=== PATIENT | female | born 1990 | race Caucasian/White ===

== ENCOUNTER → 2017-08-22 | Outpatient (CLI) | payer OTHER ==
[~2017-08-22] MED LIST: ALBU90OI INH; HYDR1TAB94 PO; IBU400 MG PO; IBUP800 PO; Verotin-Gr Cap1 EACH PO; ZYRTEC10 M1 PO; Zofran Odt4 MG SL
== END | disposition home or self-care (01) ==
LOC: LAB EV 15:14
DX: R35.8 Other polyuria (principal)
CPT/HCPCS: 87086

== ENCOUNTER → 2017-10-14 | Outpatient (CLI) | payer OTHER ==
[~2017-10-14] MED LIST changes: -IBU400 MG PO
[2017-10-14 12:04] LABS: Source, Urine Clean Catch
[2017-10-14 12:41] LABS: Bilirubin, Urine Neg (Neg); Blood, Urine 1+ (Neg); Glucose Qualitative, Urine Neg (Neg); Ketones, Urine Neg (Neg); Leukocyte Esterase, Urine 1+ (Neg); Nitrite, Urine Neg (Neg); Protein, Urine Neg (Neg); Specific Gravity, Urine 1.015 (1.003-1.022); Urobilinogen, Urine NORM (Normal)
[2017-10-14 13:17] LABS: Appearance, Urine Hazy (Clear); Color, Urine Yellow (P-Yellow)
[2017-10-14 13:18] LABS: Bacteria Mod /hpf; Squamous Epithelial Cells Mod /hpf (Few)
[2017-10-15 08:44] LABS: Candida species (DNA Probe) Negative (NEGATIVE); G. vaginalis (DNA Probe) Negative (NEGATIVE); T. vaginalis (DNA Probe) Negative (NEGATIVE)
[2017-10-15 12:24] LABS: Source Vaginal/Cervical
[2017-10-30 14:05] LABS: HPV Genotype 16 Not Detected (NOTDET); HPV Genotype 18 Not Detected (NOTDET); HPV High Risk Other Detected (NOTDET)
== END | disposition home or self-care (01) ==
LOC: LAB 12:02 → LAB SHORT 12:02
PROVIDERS: Advanced Practice Midwife
DX: O99.89 Other specified diseases and conditions complicating pregnancy, childbirth and the puerperium (principal); N89.8 Other specified noninflammatory disorders of vagina; R30.0 Dysuria
CPT/HCPCS: 81001; 87086; 87480; 87510; 87624; 87660; G0123

== ENCOUNTER → 2018-03-04 | Outpatient (CLI) | payer OTHER ==
[2018-03-05 14:36] LABS: Candida species (DNA Probe) Positive (NEGATIVE); G. vaginalis (DNA Probe) Negative (NEGATIVE); T. vaginalis (DNA Probe) Negative (NEGATIVE)
== END ==
LOC: LAB 10:01 → LAB SHORT 10:01
PROVIDERS: Advanced Practice Midwife
DX: N76.0 Acute vaginitis (principal)
CPT/HCPCS: 87480; 87510; 87660

== ENCOUNTER → 2018-04-01 | Outpatient (CLI) | payer OTHER | LOC: LAB SHORT 10:40 → LAB 10:40 | DX: Z34.80 Encounter for supervision of other normal pregnancy, unspecified trimester (principal) | CPT/HCPCS: 87081; 87653 ==

== ENCOUNTER 2018-04-29 12:00 | Inpatient (IN) | payer SELFPAY ==
[~2018-04-29] VITALS: Ht 157.5 cm; Wt 81.4 kg
[2018-04-29 12:41] LABS: BASOPHILS ABSOLUTE AUTO 0.03 K/mm3 (0.00-0.23); BASOPHILS PERCENT AUTO 0 % (0-2); EOSINOPHILS ABSOLUTE AUTO 0.08 K/mm3 (0.00-0.68); EOSINOPHILS PERCENT AUTO 1 % (0-6); Hematocrit 37.5 % (33.0-51.0); Hemoglobin 12.9 g/dL (11.5-16.0); IMMATURE GRAN ABSOLUTE AUTO 0.07 K/mm3 (0.00-0.10); IMMATURE GRAN PERCENT AUTO 1 % (0-1); LYMPHOCYTES ABSOLUTE AUTO 1.87 K/mm3 (0.84-5.20); LYMPHOCYTES PERCENT AUTO 17 % (21-46); MONOCYTES ABSOLUTE AUTO 0.38 K/mm3 (0.16-1.47); MONOCYTES PERCENT AUTO 3 % (4-13); Mean Corpuscular HGB 29.6 pg (26.0-34.0); Mean Corpuscular HGB Conc 34.4 g/dL (31.5-36.5); Mean Corpuscular Volume 86 fL (80-100); NEUTROPHILS ABSOLUTE AUTO 8.61 K/mm3 (1.96-9.15); NEUTROPHILS PERCENT AUTO 78 % (41-73); Platelet Count 149 K/mm3 (150-400); RDW Coefficient Variation 12.3 % (11.7-14.2); RDW Standard Deviation 38.5 fL (35.1-46.3); Red Blood Cell Count 4.36 M/mm3 (3.80-5.20); White Blood Cell Count 11.04 K/mm3 (4.00-11.30)
[2018-04-29 12:49] LABS: Mean Platelet Volume 13.8 fL (9.1-12.4)
[2018-04-29 13:08] LABS: Alanine Aminotransfer (ALT/SGP 16 U/L (12-78); Albumin, Blood 2.8 g/dL (3.4-5.0); Albumin/Globulin Ratio 0.6 (0.8-1.8); Alk Phos 126 U/L (50-136); Anion Gap 15 mmol/L (6-16); Aspartate Aminotrans (AST/SGOT 19 U/L (12-37); Bilirubin, Total 0.3 mg/dL (0.1-1.0); Blood Urea Nitrogen 4 mg/dL (8-24); Bun/Creatinine Ratio 8.5 (12.0-20.0); CO2, Blood 19 mmol/L (21-32); Chloride, Blood 104 mmol/L (98-108); Creatinine, Blood 0.47 mg/dL (0.40-1.00); Globulin, Blood 4.7 g/dL (2.2-4.0); Glomerular Filtration Rate >60 (60-); Glucose, Blood 110 mg/dL (70-99); Potassium, Blood 3.7 mmol/L (3.5-5.5); Sodium, Blood 138 mmol/L (136-145); Total Protein, Blood 7.5 g/dL (6.4-8.2)
[2018-04-30] MEDS ORDERED: IBU400 MG PO (18:50)
[2018-05-01 05:15] LABS: Hematocrit 32.2 % (33.0-51.0); Mean Corpuscular HGB 29.6 pg (26.0-34.0); Mean Corpuscular HGB Conc 34.2 g/dL (31.5-36.5); Mean Corpuscular Volume 87 fL (80-100); Platelet Count 123 K/mm3 (150-400); RDW Coefficient Variation 12.5 % (11.7-14.2); RDW Standard Deviation 39.7 fL (35.1-46.3); Red Blood Cell Count 3.71 M/mm3 (3.80-5.20); White Blood Cell Count 16.88 K/mm3 (4.00-11.30)
[2018-05-01 05:17] LABS: Mean Platelet Volume 13.2 fL (9.1-12.4)
== END 2018-05-02 15:30 | disposition home or self-care (01) | DRG 774 ==
LOC: OBS 12:00 → BC 12:17
PROVIDERS: Advanced Practice Midwife
PROC: 10E0XZZ Delivery of Products of Conception, External Approach (ICD-10-PCS; principal; 2018-04-30)
PROC: 3E033VJ Introduction of Other Hormone into Peripheral Vein, Percutaneous Approach (ICD-10-PCS; 2018-04-30)
PROC: 10907ZC Drainage of Amniotic Fluid, Therapeutic from Products of Conception, Via Natural or Artificial Opening (ICD-10-PCS; 2018-04-30)
PROC: 3E0R3BZ Introduction of Anesthetic Agent into Spinal Canal, Percutaneous Approach (ICD-10-PCS; 2018-04-30)
PROC: 0HQ9XZZ Repair Perineum Skin, External Approach (ICD-10-PCS; 2018-04-30)
DX: O13.4 Gestational [pregnancy-induced] hypertension without significant proteinuria, complicating childbirth (principal); O75.3 Other infection during labor; O48.0 Post-term pregnancy; Z3A.40 40 weeks gestation of pregnancy; Z37.0 Single live birth; O76 Abnormality in fetal heart rate and rhythm complicating labor and delivery; Z88.8 Allergy status to other drugs, medicaments and biological substances; O70.0 First degree perineal laceration during delivery
CPT/HCPCS: 36415; 51702; 80053; 85025; 85027; J0290; J0690; J1580; J2590; J3010; J7120

== ENCOUNTER 2019-03-14 14:38 | Emergency (ER) | payer OTHER ==
[~2019-03-14] VITALS: Ht 165.1 cm; Wt 72.6 kg
[~2019-03-14 14:38] MED LIST changes: +BUSP10 PO; +IBU400 MG PO; +SERT50 PO
[2019-03-14] MEDS ORDERED: Veetids 500500 MG PO (14:51)
== END 2019-03-14 15:15 | disposition home or self-care (01) ==
LOC: ER 14:38
DX: J03.90 Acute tonsillitis, unspecified (principal); J45.909 Unspecified asthma, uncomplicated; Z88.1 Allergy status to other antibiotic agents; Z88.6 Allergy status to analgesic agent; Z79.899 Other long term (current) drug therapy; Z87.891 Personal history of nicotine dependence
CPT/HCPCS: 99282; J1100

== ENCOUNTER → 2020-05-18 | Outpatient (CLI) | payer OTHER ==
[~2020-05-18] MED LIST changes: +FERSU300; +PRENATAL TABLE1 EAC2; +Veetids 500500 MG PO
== END | disposition home or self-care (01) ==
LOC: LAB SHORT 11:18 → LAB 11:18
DX: Z34.93 Encounter for supervision of normal pregnancy, unspecified, third trimester (principal)
CPT/HCPCS: 87081; 87653

== ENCOUNTER 2020-06-08 04:03 | Inpatient (IN) | payer OTHER ==
[~2020-06-08] VITALS: Ht 157.5 cm; Wt 83.6 kg
[~2020-06-08 04:03] MED LIST changes: -FERSU300; -PRENATAL TABLE1 EAC2
[2020-06-08] MEDS ORDERED: PRENATAL TABLE1 EAC2 ×2 (04:40)
[2020-06-08] MEDS ORDERED: FERSU300 ×2 (04:41)
[2020-06-08 04:44] LABS: BASOPHILS ABSOLUTE AUTO 0.02 K/mm3 (0.00-0.23); BASOPHILS PERCENT AUTO 0 % (0-2); EOSINOPHILS ABSOLUTE AUTO 0.11 K/mm3 (0.00-0.68); EOSINOPHILS PERCENT AUTO 1 % (0-6); Hematocrit 37.6 % (33.0-51.0); Hemoglobin 12.3 g/dL (11.5-16.0); IMMATURE GRAN ABSOLUTE AUTO 0.05 K/mm3 (0.00-0.10); IMMATURE GRAN PERCENT AUTO 1 % (0-1); LYMPHOCYTES ABSOLUTE AUTO 2.12 K/mm3 (0.84-5.20); LYMPHOCYTES PERCENT AUTO 22 % (21-46); MONOCYTES ABSOLUTE AUTO 0.45 K/mm3 (0.16-1.47); MONOCYTES PERCENT AUTO 5 % (4-13); Mean Corpuscular HGB 29.2 pg (26.0-34.0); Mean Corpuscular HGB Conc 32.7 g/dL (31.5-36.5); Mean Corpuscular Volume 89 fL (80-100); Mean Platelet Volume 12.9 fL (9.1-12.4); NEUTROPHILS ABSOLUTE AUTO 7.02 K/mm3 (1.96-9.15); NEUTROPHILS PERCENT AUTO 72 % (41-73); Platelet Count 132 K/mm3 (150-400); RDW Coefficient Variation 13.1 % (11.7-14.2); RDW Standard Deviation 42.5 fL (35.1-46.3); Red Blood Cell Count 4.21 M/mm3 (3.80-5.20); White Blood Cell Count 9.77 K/mm3 (4.00-11.30)
[2020-06-08 17:41] LABS: Source, Urine Catheter
[2020-06-08 17:50] LABS: Appearance, Urine Clear (Clear); Bilirubin, Urine Neg (Neg); Blood, Urine 5+ (Neg); Color, Urine Yellow (P-Yellow); Glucose Qualitative, Urine Neg (Neg); Ketones, Urine 4+ (Neg); Leukocyte Esterase, Urine Neg (Neg); Nitrite, Urine Neg (Neg); Protein, Urine 2+ (Neg); Urobilinogen, Urine NORM (Normal)
[2020-06-08 18:30] LABS: Bacteria Few /hpf; Red Blood Cells, Urine TNTC /hpf (0-2); Squamous Epithelial Cells Few /hpf (Few); White Blood Cells, Urine Not Seen /hpf (0-5)
[2020-06-08 18:31] LABS: Mucus Light (0-Heavy)
--- NOTE | 2020-06-09 09:00 | NUR ---
PT RESTING IN BED, NB IN ARMS. PLANNIGN TO DC HOME LATER TODAY.
--- NOTE | 2020-06-09 16:28 | NUR ---
ROUNDING MOM REPORTS IS GOING WELL AND HAS NO QUESTIONS. MOM IS AN EXPERIENCED MOM.
--- NOTE | 2020-06-09 17:30 | NUR ---
BANDS MATCHED, DC INSTRUCTIONS GONE OVER. DC HOME.
== END 2020-06-09 17:30 | disposition home or self-care (01) | DRG 807 ==
LOC: OBS 04:03 → BC 04:09
PROVIDERS: ADMIT Obstetrics & Gynecology
PROC: 10E0XZZ Delivery of Products of Conception, External Approach (ICD-10-PCS; principal; 2020-06-08)
PROC: 0KQM0ZZ Repair Perineum Muscle, Open Approach (ICD-10-PCS; 2020-06-08)
PROC: 10907ZC Drainage of Amniotic Fluid, Therapeutic from Products of Conception, Via Natural or Artificial Opening (ICD-10-PCS; 2020-06-08)
PROC: 00HU33Z Insertion of Infusion Device into Spinal Canal, Percutaneous Approach (ICD-10-PCS; 2020-06-08)
PROC: 3E0R3BZ Introduction of Anesthetic Agent into Spinal Canal, Percutaneous Approach (ICD-10-PCS; 2020-06-08)
DX: O99.824 Streptococcus B carrier state complicating childbirth (principal); Z37.0 Single live birth; O69.89X0 Labor and delivery complicated by other cord complications, not applicable or unspecified; O70.1 Second degree perineal laceration during delivery; Z3A.39 39 weeks gestation of pregnancy; Z87.891 Personal history of nicotine dependence; Z20.828 Contact with and (suspected) exposure to other viral communicable diseases
CPT/HCPCS: 36415; 51702; 81001; 85025; 86850; 86900; 86901; J0290; J1885; J2001; J2210; J2405; J2590; J3010; J7120; U0003

== ENCOUNTER → 2021-03-21 | Outpatient (CLI) | payer OTHER ==
[~2021-03-21] MED LIST changes: +FERSU300; +PRENATAL TABLE1 EAC2
[2021-03-23 16:58] LABS: CORONAVIRUS (COVID19) CSH-NRL Negative (Negative)
== END ==
LOC: LAB 11:35 → LAB SHORT 11:35
PROVIDERS: Family Medicine
DX: Z20.822 Contact with and (suspected) exposure to COVID-19 (principal); Z88.1 Allergy status to other antibiotic agents; Z88.6 Allergy status to analgesic agent
CPT/HCPCS: U0003

== ENCOUNTER → 2021-06-26 | Outpatient (CLI) | payer OTHER | END | disposition home or self-care (01) | LOC: LAB 07:45 → LAB SHORT 07:45 | DX: D23.72 Other benign neoplasm of skin of left lower limb, including hip (principal) | CPT/HCPCS: 88305 ==

== ENCOUNTER → 2022-09-06 | Outpatient (CLI) | payer OTHER ==
[2022-09-06 18:06] LABS: Protein, Urine Quantitative 7.2 mg/dL (0.0-11.9)
== END | disposition home or self-care (01) ==
LOC: LAB SHORT 09:30
PROVIDERS: Obstetrics & Gynecology
DX: I10 Essential (primary) hypertension (principal)
CPT/HCPCS: 81050; 84156

== ENCOUNTER → 2022-09-25 | Outpatient (CLI) | payer OTHER ==
[2022-09-25 14:11] LABS: Candida species (DNA Probe) Positive (NEGATIVE); G. vaginalis (DNA Probe) Negative (NEGATIVE); T. vaginalis (DNA Probe) Negative (NEGATIVE)
== END | disposition home or self-care (01) ==
LOC: LAB SHORT 11:04 → LAB 11:04
PROVIDERS: Obstetrics & Gynecology
DX: N76.0 Acute vaginitis (principal)
CPT/HCPCS: 87480; 87510; 87660

== ENCOUNTER 2022-10-05 18:59 | Emergency (ER) | payer OTHER ==
[~2022-10-05] VITALS: Ht 157.5 cm; Wt 86.2 kg
[2022-10-05 19:41] LABS: BASOPHILS ABSOLUTE AUTO 0.02 K/mm3 (0.00-0.23); BASOPHILS PERCENT AUTO 0 % (0-2); EOSINOPHILS PERCENT AUTO 1 % (0-6); Hematocrit 36.2 % (33.0-51.0); Hemoglobin 12.1 g/dL (11.5-16.0); IMMATURE GRAN ABSOLUTE AUTO 0.07 K/mm3 (0.00-0.10); IMMATURE GRAN PERCENT AUTO 1 % (0-1); LYMPHOCYTES PERCENT AUTO 17 % (21-46); MONOCYTES ABSOLUTE AUTO 0.46 K/mm3 (0.16-1.47); MONOCYTES PERCENT AUTO 5 % (4-13); Mean Corpuscular HGB 28.5 pg (26.0-34.0); Mean Corpuscular HGB Conc 33.4 g/dL (31.5-36.5); Mean Corpuscular Volume 85 fL (80-100); Mean Platelet Volume 11.9 fL (9.1-12.4); NEUTROPHILS ABSOLUTE AUTO 7.29 K/mm3 (1.96-9.15); NEUTROPHILS PERCENT AUTO 77 % (41-73); Platelet Count 195 K/mm3 (150-400); RDW Coefficient Variation 13.2 % (11.7-14.2); RDW Standard Deviation 40.9 fL (35.1-46.3); Red Blood Cell Count 4.24 M/mm3 (3.80-5.20); White Blood Cell Count 9.54 K/mm3 (4.00-11.30)
[2022-10-05 20:02] LABS: Albumin, Blood 3.1 g/dL (3.4-5.0); Albumin/Globulin Ratio 0.7 (0.8-1.8); Bilirubin, Total 0.2 mg/dL (0.1-1.0); Bun/Creatinine Ratio 9.1 (12.0-20.0); Calcium, Blood 9.6 mg/dL (8.5-10.1); Creatinine, Blood 0.44 mg/dL (0.40-1.00); Globulin, Blood 4.7 g/dL (2.2-4.0); Potassium, Blood 3.7 mmol/L (3.5-5.5); Total Protein, Blood 7.8 g/dL (6.4-8.2)
[2022-10-05 21:18] LABS: Source, Urine Clean Catch
[2022-10-05 21:25] LABS: Appearance, Urine Clear (Clear); Bilirubin, Urine Neg (Neg); Blood, Urine Neg (Neg); Color, Urine Yellow (P-Yellow); Glucose Qualitative, Urine Neg (Neg); Ketones, Urine Neg (Neg); Leukocyte Esterase, Urine Neg (Neg); Nitrite, Urine Neg (Neg); Protein, Urine Neg (Neg); Specific Gravity, Urine 1.015 (1.003-1.022); Urobilinogen, Urine NORM (Normal)
[2022-10-05 21:26] LABS: Free Thyroxine 0.83 ng/dL (0.70-1.60)
[2022-10-05 21:28] LABS: Thyroid Stimulating Hormone 1.42 uIU/mL (0.360-4.800)
[2022-10-05 21:37] LABS: U Amphetamine Screen Not Detected; U Barbituate Screen Not Detected; U Benzodiazapine Screen Not Detected; U Buprenorphine Screen Not Detected; U Cannabinoids Screen Not Detected; U Cocaine Screen Not Detected; U Methadone Screen Not Detected; U Methamphetamine Screen Not Detected; U Opiates Screen Not Detected; U Oxycodone Screen Not Detected; U Phencyclidine Screen Not Detected; U Propoxyphene Screen Not Detected
[2022-10-05] MEDS ORDERED: METO50 PO (23:24)
== END 2022-10-05 23:37 | disposition home or self-care (01) ==
LOC: ER 18:59
PROVIDERS: Emergency Medicine; Student in an Organized Health Care Education/Training Program
DX: O99.891 Other specified diseases and conditions complicating pregnancy (principal); O99.412 Diseases of the circulatory system complicating pregnancy, second trimester; O99.512 Diseases of the respiratory system complicating pregnancy, second trimester; O16.2 Unspecified maternal hypertension, second trimester; R07.89 Other chest pain; R06.02 Shortness of breath; J45.909 Unspecified asthma, uncomplicated; Z3A.21 21 weeks gestation of pregnancy; Z79.899 Other long term (current) drug therapy; Z88.8 Allergy status to other drugs, medicaments and biological substances; Z88.1 Allergy status to other antibiotic agents; Z87.891 Personal history of nicotine dependence
CPT/HCPCS: 36415; 71260; 80053; 81003; 84439; 84443; 84484; 85025; 93005; 93010; Q9967

== ENCOUNTER → 2023-01-02 | Outpatient (CLI) | payer OTHER ==
[~2023-01-02] MED LIST changes: +METO50 PO
[2023-01-02 14:44] LABS: Candida species (DNA Probe) Positive (NEGATIVE); G. vaginalis (DNA Probe) Negative (NEGATIVE); T. vaginalis (DNA Probe) Negative (NEGATIVE)
== END | disposition home or self-care (01) ==
LOC: LAB 09:55 → LAB SHORT 09:55
PROVIDERS: Obstetrics & Gynecology
DX: N76.0 Acute vaginitis (principal)
CPT/HCPCS: 87480; 87510; 87660

== ENCOUNTER → 2023-01-04 | Outpatient (CLI) | payer OTHER | END | disposition home or self-care (01) | LOC: LAB SHORT 14:13 → LAB 14:13 | PROVIDERS: Obstetrics & Gynecology | DX: O09.893 Supervision of other high risk pregnancies, third trimester (principal) | CPT/HCPCS: 81050; 84156 ==

== ENCOUNTER → 2023-01-22 | Outpatient (CLI) | payer OTHER | LOC: LAB SHORT 10:11 → LAB 10:11 | DX: O09.893 Supervision of other high risk pregnancies, third trimester (principal) | CPT/HCPCS: 87081; 87150 ==

== ENCOUNTER 2023-03-08 13:08 | Emergency (ER) | payer OTHER ==
[~2023-03-08] VITALS: Ht 157.5 cm; Wt 80.3 kg
[~2023-03-08 13:08] MED LIST changes: +ABILIFY MYCITE10 M2 PO; +METO10 PO; +OMEP20ER PO; +SERT100 PO
[2023-03-08 14:51] LABS: BASOPHILS ABSOLUTE AUTO 0.03 K/mm3 (0.00-0.23); BASOPHILS PERCENT AUTO 0 % (0-2); EOSINOPHILS ABSOLUTE AUTO 0.17 K/mm3 (0.00-0.68); EOSINOPHILS PERCENT AUTO 2 % (0-6); Hematocrit 36.9 % (33.0-51.0); Hemoglobin 12.1 g/dL (11.5-16.0); IMMATURE GRAN ABSOLUTE AUTO 0.03 K/mm3 (0.00-0.10); IMMATURE GRAN PERCENT AUTO 0 % (0-1); LYMPHOCYTES ABSOLUTE AUTO 1.98 K/mm3 (0.84-5.20); LYMPHOCYTES PERCENT AUTO 28 % (21-46); MONOCYTES ABSOLUTE AUTO 0.37 K/mm3 (0.16-1.47); MONOCYTES PERCENT AUTO 5 % (4-13); Mean Corpuscular HGB 27.5 pg (26.0-34.0); Mean Corpuscular HGB Conc 32.8 g/dL (31.5-36.5); Mean Corpuscular Volume 84 fL (80-100); Mean Platelet Volume 10.8 fL (9.1-12.4); NEUTROPHILS ABSOLUTE AUTO 4.54 K/mm3 (1.96-9.15); NEUTROPHILS PERCENT AUTO 64 % (41-73); Platelet Count 207 K/mm3 (150-400); RDW Coefficient Variation 13.6 % (11.7-14.2); White Blood Cell Count 7.12 K/mm3 (4.00-11.30)
[2023-03-08 15:09] LABS: Albumin, Blood 3.8 g/dL (3.4-5.0); Bilirubin, Total 0.3 mg/dL (0.1-1.0); Bun/Creatinine Ratio 23.4 (12.0-20.0); Calcium, Blood 8.9 mg/dL (8.5-10.1); Creatinine, Blood 0.64 mg/dL (0.40-1.00); Globulin, Blood 3.8 g/dL (2.2-4.0); Potassium, Blood 3.9 mmol/L (3.5-5.5); Total Protein, Blood 7.6 g/dL (6.4-8.2)
[2023-03-08 17:13] LABS: Source, Urine Clean Catch
[2023-03-08 17:16] LABS: Appearance, Urine Turbid (Clear); Bilirubin, Urine Neg (Neg); Blood, Urine 5+ (Neg); Color, Urine Amber (P-Yellow); Glucose Qualitative, Urine Neg (Neg); Ketones, Urine Neg (Neg); Leukocyte Esterase, Urine 1+ (Neg); Nitrite, Urine Neg (Neg); Protein, Urine 3+ (Neg); Specific Gravity, Urine 1.025 (1.003-1.022); Urobilinogen, Urine NORM (Normal)
[2023-03-08 17:30] VITALS: BP 111/82
[2023-03-08 17:35] LABS: Bacteria Mod /hpf; Red Blood Cells, Urine TNTC /hpf (0-2); Squamous Epithelial Cells Mod /hpf (Few)
[2023-03-08] MEDS ORDERED: MEDR10 PO (19:17)
== END 2023-03-08 19:28 | disposition home or self-care (01) ==
LOC: ER 13:08
PROVIDERS: Physician Assistant
DX: O72.1 Other immediate postpartum hemorrhage (principal); Z87.891 Personal history of nicotine dependence; Z88.1 Allergy status to other antibiotic agents; Z88.6 Allergy status to analgesic agent; Z79.51 Long term (current) use of inhaled steroids; Z79.899 Other long term (current) drug therapy; O16.5 Unspecified maternal hypertension, complicating the puerperium; O99.53 Diseases of the respiratory system complicating the puerperium; J45.909 Unspecified asthma, uncomplicated
CPT/HCPCS: 76856; 80053; 81001; 85025; 87086; 96372; 96374; 99284-25; J1050; J1885; J7030

== ENCOUNTER 2023-05-08 08:56 | Day surgery (SDC) | payer OTHER ==
[2023-05-08] VITALS (12 sets, daily range): BP systolic 112–139; BP diastolic 58–95
[~2023-05-08] VITALS: Ht 159 cm; Wt 86.7 kg
[~2023-05-08 08:56] MED LIST changes: +FLUTICASONE-SA1 EAC8 INH; +LORA10ER PO; +MEDR10 PO; +VENL150ER PO
--- NOTE | 2023-05-08 10:33 | NUR ---
Ambulatory in Day Surgery. Surgical site prepped with 2% Chlorhexidine cloth wipe. History, Chart, Medications and Allergies reviewed before start of procedure. Patient confirms NPO status and agrees with scheduled surgery. Pre-Op teaching done. Pt verbalizes understanding. Patient reports completing Chlorhexadine shower X2 prior to admission to hospital.
--- NOTE | 2023-05-08 12:42 | NUR ---
RECEIVED REPORT FROM EUFEMIA CHENG FROM PACU. VSS. SEE FLOWSHEET. PT REPORTS NO FAMILY MEMBERS HERE FOR HER. SHE IS REPORTING PAIN OF 8/10 IN HER ABD. SEE EMAR FOR PAIN MEDICATION GIVEN. SHE REPORTS NO NAUSEA AND IS REFUSING ANYTHING TO EAT OR DRINK AT THIS TIME.
--- NOTE | 2023-05-08 14:00 | NUR ---
ENCOURAGE TO INCREASE FLUIDS AND TAKE MEDS PRESCRIBED. INSTRUCTED TO USE HEATING PAD AND AMBULATE IF ANY DEFERRED PAIN TO SHOULDER AREA.
--- NOTE | 2023-05-08 14:03 | NUR ---
Patient up to Ambulate independently. Gait steady. Discharge instructions reviewed with patient. Patient verbalizes understanding. Copy given to patient to take home. Dressing to procedure site clean, dry, intact with no visible drainage, swelling, erythema or bruising noted. Patient States Post-Procedure ride home has been arranged with . Discharged via wheelchair to private car for ride home.
== END 2023-05-08 14:00 | disposition home or self-care (01) ==
LOC: ORSCMMR 08:56 → ORD 10:30 → ORSCMMR 14:00
PROVIDERS: Obstetrics & Gynecology
PROC: 0UT74ZZ Resection of Bilateral Fallopian Tubes, Percutaneous Endoscopic Approach (ICD-10-PCS; principal; 2023-05-08 10:30)
DX: Z30.2 Encounter for sterilization (principal); J45.909 Unspecified asthma, uncomplicated; Z79.899 Other long term (current) drug therapy; E66.9 Obesity, unspecified; Z68.34 Body mass index [BMI] 34.0-34.9, adult
CPT/HCPCS: 88302; A9270; J1100; J1170; J1885; J2250; J2405; J2704; J3010; J7050; J7120

== ENCOUNTER → 2023-11-28 | Outpatient (CLI) | payer OTHER ==
[2023-11-28 16:03] LABS: Source, Urine Clean Catch
[2023-11-28 17:45] LABS: Appearance, Urine Clear (Clear); Bilirubin, Urine Neg (Neg); Blood, Urine 1+ (Neg); Color, Urine Yellow (P-Yellow); Glucose Qualitative, Urine Neg (Neg); Ketones, Urine Neg (Neg); Leukocyte Esterase, Urine Neg (Neg); Nitrite, Urine Neg (Neg); Protein, Urine 1+ (Neg); Specific Gravity, Urine 1.015 (1.003-1.022); Urobilinogen, Urine NORM (Normal)
[2023-11-28 17:54] LABS: Bacteria Mod /hpf; Red Blood Cells, Urine 0-2 /hpf (0-2); Squamous Epithelial Cells Mod /hpf (Few); White Blood Cells, Urine 0-2 /hpf (0-5)
== END ==
LOC: LAB 16:01 → LAB SHORT 16:01
PROVIDERS: Obstetrics & Gynecology
DX: N39.3 Stress incontinence (female) (male) (principal)
CPT/HCPCS: 81001; 87086

== ENCOUNTER 2024-07-18 20:15 | Observation (INO) | payer OTHER ==
[~2024-07-18] VITALS: Ht 167.6 cm; Wt 90.7 kg
[~2024-07-18 20:15] MED LIST changes: +LOSA25 PO
[2024-07-18 20:51] LABS: BASOPHILS ABSOLUTE AUTO 0.04 K/mm3 (0.00-0.23); BASOPHILS PERCENT AUTO 1 % (0-2); EOSINOPHILS PERCENT AUTO 7 % (0-6); Hematocrit 35.1 % (33.0-51.0); Hemoglobin 11.5 g/dL (11.5-16.0); IMMATURE GRAN ABSOLUTE AUTO 0.01 K/mm3 (0.00-0.10); IMMATURE GRAN PERCENT AUTO 0 % (0-1); LYMPHOCYTES ABSOLUTE AUTO 2.33 K/mm3 (0.84-5.20); LYMPHOCYTES PERCENT AUTO 33 % (21-46); MONOCYTES PERCENT AUTO 4 % (4-13); Mean Corpuscular HGB 27.8 pg (26.0-34.0); Mean Corpuscular HGB Conc 32.8 g/dL (31.5-36.5); Mean Corpuscular Volume 85 fL (80-100); Mean Platelet Volume 10.7 fL (9.1-12.4); NEUTROPHILS ABSOLUTE AUTO 3.89 K/mm3 (1.96-9.15); NEUTROPHILS PERCENT AUTO 55 % (41-73); Platelet Count 248 K/mm3 (150-400); RDW Coefficient Variation 12.1 % (11.7-14.2); RDW Standard Deviation 37.2 fL (35.1-46.3); Red Blood Cell Count 4.13 M/mm3 (3.80-5.20); White Blood Cell Count 7.07 K/mm3 (4.00-11.30)
[2024-07-18 21:01] LABS: Source, Urine Clean Catch
[2024-07-18 21:03] LABS: Appearance, Urine Clear (Clear); Bilirubin, Urine Neg (Neg); Blood, Urine Neg (Neg); Color, Urine Yellow (P-Yellow); Glucose Qualitative, Urine Neg (Neg); Ketones, Urine 1+ (Neg); Leukocyte Esterase, Urine Neg (Neg); Nitrite, Urine Neg (Neg); Protein, Urine 1+ (Neg); Urobilinogen, Urine NORM (Normal)
[2024-07-18 21:10] LABS: Ethanol (Alcohol), Blood, Med <3 mg/dL; Salicylate <1.7 mg/dL (2.8-20.0)
[2024-07-18 21:15] LABS: Alanine Aminotransfer (ALT/SGP 20 U/L (12-78); Albumin/Globulin Ratio 1.1 (0.8-1.8); Alk Phos 72 U/L (50-136); Anion Gap 10 mmol/L (3-11); Aspartate Aminotrans (AST/SGOT 21 U/L (12-37); Bilirubin, Total 0.4 mg/dL (0.1-1.0); Blood Urea Nitrogen 9 mg/dL (8-24); Bun/Creatinine Ratio 11.2 (12.0-20.0); CO2, Blood 24 mmol/L (21-32); Calcium, Blood 8.7 mg/dL (8.5-10.1); Chloride, Blood 110 mmol/L (98-108); Globulin, Blood 3.5 g/dL (2.2-4.0); Glomerular Filtration Rate 100 (60-); Glucose, Blood 85 mg/dL (70-99); Potassium, Blood 3.8 mmol/L (3.5-5.5); Sodium, Blood 140 mmol/L (136-145); Total Protein, Blood 7.5 g/dL (6.4-8.2)
[2024-07-18 21:16] LABS: U Cannabinoids Screen DETECTED
[2024-07-18 21:16] LABS: Acetaminophen, Random <2.0 ug/mL (10.0-30.0)
[2024-07-18 21:17] LABS: U Amphetamine Screen Not Detected; U Barbituate Screen Not Detected; U Benzodiazapine Screen Not Detected; U Buprenorphine Screen Not Detected; U Cocaine Screen Not Detected; U Methadone Screen Not Detected; U Methamphetamine Screen Not Detected; U Opiates Screen Not Detected; U Oxycodone Screen Not Detected; U Phencyclidine Screen Not Detected
[2024-07-19] MEDS ORDERED: LORazepam 1 MG Tab PO ONE (00:15)
[2024-07-19 01:23] LABS: Influenza A, PCR NEGATIVE (NEGATIVE); Influenza B, PCR NEGATIVE (NEGATIVE); Resp Syncytial Virus, PCR NEGATIVE (NEGATIVE); SARS-Cov-2 (COVID-19) PCR, MMC NEGATIVE (NEGATIVE)
[2024-07-19 10:48] VITALS: BP 165/102
[2024-07-19] MEDS ORDERED: Losartan Potassium 25 MG Tab PO ONE (11:55)
[2024-07-19] MEDS ORDERED: ABILIFY MYCITE10 M2 PO (15:20)
[2024-07-19] MEDS ORDERED: QUEtiapine Fumarate 50 MG TAB PO SCH (21:00)
== END 2024-07-19 15:27 | disposition home or self-care (01) ==
LOC: ER 20:15 → EOR 20:16
PROVIDERS: Emergency Medicine; ADMIT Emergency Medicine
DX: F32.A Depression, unspecified (principal); R45.851 Suicidal ideations; Z79.899 Other long term (current) drug therapy
CPT/HCPCS: 0241U; 80053; 80320; 81025; 84443; 85025; 86592; 93005; 93010; 99285-25; A9270; G0378; G0480